=== PATIENT | female | born 1965 ===

== ENCOUNTER 2016-07-13 15:15 | Emergency (ER) | payer BC, OTHER ==
[2016-07-13 15:59] VITALS: BP 92/56
--- NOTE | 2016-07-13 16:16 | UC ---
Lower Extremity/Ankle HPI - HPI Summary HPI Summary: Twisted R ankle indoors at home yesterday, heard/felt crack. Injured same ankle , had sprain, in June 2011. No hx of ortho surgery. - History of Current Complaint Chief Complaint: UCLowerExtremity Stated Complaint: right ankle injury-fall Time Seen by Provider: 07/13/16 15:45 Hx Obtained From: Patient ?: No Onset/Duration: Sudden Onset Severity Initially: Moderate Severity Currently: Moderate Aggravating Factor(s): Standing, Ambulation Able to Bear Weight: Yes - Allergies/Home Medications Allergies/Adverse Reactions: Allergies Allergy/AdvReac Type Severity Reaction Status Date / Time No Known Allergies Allergy Verified 07/13/16 15:59 Home Medications: Home Medications NK [No Home Medications Reported] 07/13/16 [History Confirmed 07/13/16] Sertraline* [Zoloft*] 50 mg PO DAILY 07/13/16 [History Confirmed 07/13/16] PMH/Surg Hx/FS Hx/Imm Hx Previously Healthy: Yes - Surgical History Surgical History: None - Family History Known Family History: Positive: Hypertension - Social History 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 Lives: Alone Alcohol Use: Weekly Substance Use Type: None Smoking Status (MU): Never Smoked Tobacco Review of Systems Constitutional: Negative Skin: Negative Eyes: Negative ENT: Negative Respiratory: Negative Cardiovascular: Negative Gastrointestinal: Negative Genitourinary: Negative Motor: Negative Neurovascular: Negative Musculoskeletal: Arthralgia Neurological: Negative Psychological: Negative All Other Systems Reviewed And Are Negative: Yes Physical Exam Triage Information Reviewed: Yes Appearance: Well-Appearing, No Pain Distress, Well-Nourished Vital Signs: Initial Vital Signs Temp 99.4 F 07/13/16 15:55 Pulse 71 07/13/16 15:55 Resp 18 07/13/16 15:55 BP 92/56 07/13/16 15:55 Pulse Ox 100 07/13/16 15:55 Vital Signs Reviewed: Yes Eye Exam: Normal Eyes: Positive: Conjunctiva Clear ENT Exam: Normal ENT: Positive: Normal ENT inspection, Hearing grossly normal, Pharynx normal, TMs normal Dental Exam: Normal Neck exam: Normal Neck: Positive: Supple, Nontender, No Lymphadenopathy Respiratory Exam: Normal Respiratory: Positive: Chest non-tender, Lungs clear, Normal breath sounds, No respiratory distress, No accessory muscle use Cardiovascular Exam: Normal Cardiovascular: Positive: RRR, No Murmur Musculoskeletal: Positive: ROM Intact, Other: - tender over R lateral malleolus and R 5th distal MT Neurological Exam: Normal Neurological: Positive: Alert Psychological Exam: Normal Skin Exam: Normal Lower Extremity Course/Dx - Differential Dx/Diagnosis Provider Diagnoses: R ankle sprain. vs. R distal fibula fracture Discharge - Discharge Plan Condition: Stable Disposition: HOME Patient Education Materials: Ankle Sprain (ED) Additional Instructions: As we discussed, there is some question of an injury in the end of your fibula. Please follow up with an orthopedist either in [place] (at the number above) or here in [place] at [phone]. In the mean time, try to use the crutches and avoid activities that increase your pain.
--- NOTE | 2016-07-13 16:36 | RAD ---
Indication: Right ankle injury. 3 views of the ankle demonstrates posterior and inferior calcaneal spurring. There may be a nondisplaced fracture of the distal fibula present. Soft tissue swelling is noted. IMPRESSION: Question of a nondisplaced fracture of the distal fibula. Soft tissue swelling is noted laterally.
--- NOTE | 2016-07-13 16:37 | RAD ---
Indication: Right foot injury. 3 views of the right foot demonstrates no fracture. No other bone or joint abnormality is identified. IMPRESSION: No fracture of the foot is noted.
== END 2016-07-13 17:02 | disposition home or self-care (01) ==
LOC: UCCORT 15:15
DX: S99.911A Unspecified injury of right ankle, initial encounter (principal); X50.1XXA Overexertion from prolonged static or awkward postures, initial encounter; Y93.9 Activity, unspecified; Y92.009 Unspecified place in unspecified non-institutional (private) residence as the place of occurrence of the external cause
CPT/HCPCS: 99203; G0463